=== PATIENT | female | born 1980 | race Hispanic/Latino ===

== ENCOUNTER 2017-08-04 20:04 | Emergency (ER) | payer OTHER ==
[2017-08-04 20:30] LABS: BASOPHILS % (AUTO) 0.8 % (0.0-5.0); EOSINOPHILS % (AUTO) 5.9 % (0.0-8.0); HEMATOCRIT 29.6 % (36-48); LYMPHOCYTES % (AUTO) 32.6 % (21.0-51.0); MEAN CORPUSCULAR HEMOGLOBIN 23.9 pg (27.0-33.0); MEAN CORPUSCULAR HGB CONC 31.7 g/dL (32.0-36.0); MEAN CORPUSCULAR VOLUME 75.6 fL (79-99); MONOCYTES % (AUTO) 7.2 % (3.0-13.0); NEUTROPHILS % (AUTO) 53.5 % (40.0-77.0); PLATELET COUNT (AUTO) 508 K/uL (130-400); RED BLOOD CELL COUNT(AUTO) 3.91 MIL/uL (4.00-5.50); RED CELL DISTRIBUTION WIDTH 17.2 % (11.0-15.5); WHITE BLOOD COUNT (AUTO) 11.4 K/uL (4.8-10.8)
[2017-08-04] MEDS ORDERED: KETOROLAC TROMETHAMINE 30MG/ML ONE (20:33)
[2017-08-04] MEDS ORDERED: ONDANSETRON HCL MDV 20ML 2 MG/ML VIAL ONE ×2 (20:33→20:34)
[2017-08-04] MEDS ORDERED: SODIUM CHLORIDE 0.9% 1000ML 1,000 ML IV ONE (20:33)
[2017-08-04 20:42] LABS: HCG,QUAL RESULT NEGATIVE (NEGATIVE)
[2017-08-04 20:43] LABS: APPEARANCE,URINE Clear (CLEAR); BILIRUBIN,URINE Negative (NEGATIVE); COLOR,URINE Yellow (YELLOW); GLUCOSE, URINE (UA) Negative (NEGATIVE); KETONES,URINE Negative (NEGATIVE); LEUKOCYTE ESTERASE ,URINE Trace (NEGATIVE); NITRATE,URINE Negative (NEGATIVE); OCCULT BLOOD,URINE Negative (NEGATIVE); PH,URINE 5.5 (5.0-8.0); PROTEIN,URINE Negative (NEGATIVE); UROBILINOGEN,URINE 0.2 mg/dL (0.2-1.0)
[2017-08-04 20:44] LABS: CREATININE 0.6 mg/dL (0.5-1.5)
[2017-08-04 20:49] LABS: ALBUMIN 3.2 g/dL (3.5-5.0); BILIRUBIN,TOTAL 0.2 mg/dL (0.2-1.0); TOTAL PROTEIN, SERUM 7.8 g/dL (6.0-8.3)
[2017-08-04 20:59] LABS: BACTERIA,URINE Few /HPF (None Seen); RBC,URINE None Seen /HPF (0-1); WBC,URINE 0-1 /HPF (0-1)
[2017-08-04] MEDS ORDERED: MORPHINE SULFATE 4 MG/1ML SYG ONE (22:09)
== END 2017-08-04 22:50 | disposition home or self-care (01) ==
LOC: EDH 20:04
DX: N20.0 Calculus of kidney (principal); E11.9 Type 2 diabetes mellitus without complications
CPT/HCPCS: 36415; 74176; 80053; 81001; 81025; 85025; 96374; 96375; 99285; J1885; J2270; J7030

== ENCOUNTER 2018-12-25 02:07 | Emergency (ER) | payer OTHER ==
[2018-12-25] MEDS ORDERED: HYDROXYZINE HCL 25 MG TABLET ONE (02:58)
== END 2018-12-25 03:18 | disposition home or self-care (01) ==
LOC: EDH 02:07
DX: F43.9 Reaction to severe stress, unspecified (principal); F41.9 Anxiety disorder, unspecified; F32.9 Major depressive disorder, single episode, unspecified; E11.9 Type 2 diabetes mellitus without complications; Z72.0 Tobacco use

== ENCOUNTER 2021-08-23 22:23 | Emergency (ER) | payer BC, OTHER ==
[~2021-08-23] VITALS: Ht 154.9 cm; Wt 101.6 kg
[2021-08-23] MEDS ORDERED: KETOROLAC 15MG/ML VIAL (15MG/ML) IV ONE (23:00)
[2021-08-23] MEDS ORDERED: MAG/ALUM/SIMETH 30 ML UDCUP PO ONE (23:00)
[2021-08-23] MEDS ORDERED: LIDOCAINE HCL 2% VISCOUS 15 ML UDCUP PO ONE (23:00)
[2021-08-23] MEDS ORDERED: FAMOTIDINE 20MG TAB PO ONE (23:00)
[2021-08-23] MEDS ORDERED: ONDANSETRON 4MG INJ IVP ONE (23:00)
[2021-08-23] MEDS ORDERED: 0.9%NACL 1000ML 1,000 ML IV ONE (23:00)
[2021-08-23 23:02] LABS: BASOPHILS % (AUTO) 0.5 % (0.0-5.0); EOSINOPHILS % (AUTO) 5.3 % (0.0-8.0); HEMATOCRIT 30.5 % (36-48); LYMPHOCYTES % (AUTO) 27.2 % (21.0-51.0); MEAN CORPUSCULAR HEMOGLOBIN 22.1 pg (27.0-33.0); MEAN CORPUSCULAR HGB CONC 29.8 g/dL (32.0-36.0); MEAN CORPUSCULAR VOLUME 74.2 fL (79-99); NEUTROPHILS % (AUTO) 61.5 % (40.0-77.0); PLATELET COUNT (AUTO) 489 K/uL (130-400); RED BLOOD CELL COUNT(AUTO) 4.11 MIL/uL (4.00-5.50); RED CELL DISTRIBUTION WIDTH 17.8 % (11.0-15.5); WHITE BLOOD COUNT (AUTO) 14.7 K/uL (4.8-10.8)
[2021-08-23 23:03] LABS: APPEARANCE,URINE Clear (CLEAR); BILIRUBIN,URINE Negative (NEGATIVE); COLOR,URINE Yellow (YELLOW); GLUCOSE, URINE (UA) >=1000 mg/dL (NEGATIVE); KETONES,URINE Negative (NEGATIVE); LEUKOCYTE ESTERASE ,URINE Negative (NEGATIVE); NITRATE,URINE Negative (NEGATIVE); OCCULT BLOOD,URINE Negative (NEGATIVE); PROTEIN,URINE POS 2+ mg/dL (NEGATIVE); UROBILINOGEN,URINE 0.2 mg/dL (0.2-1.0)
[2021-08-23 23:09] LABS: HCG,QUAL RESULT NEGATIVE (NEGATIVE)
[2021-08-23 23:11] LABS: BACTERIA,URINE Rare /HPF (None Seen); RBC,URINE 0-1 /HPF (0-1); SQUAMOUS EPITHELIAL CELL,UR 0-2 /HPF (0-2); WBC,URINE 0-1 /HPF (0-1)
[2021-08-23 23:27] LABS: ALBUMIN 2.9 g/dL (3.5-5.0); BILIRUBIN,TOTAL 0.3 mg/dL (0.2-1.0); CREATININE 0.7 mg/dL (0.5-1.5); POTASSIUM 3.7 mmol/L (3.5-5.1); TOTAL PROTEIN, SERUM 7.7 g/dL (6.0-8.3)
[2021-08-23 23:30] VITALS: BP 135/81
[2021-08-23] MEDS ORDERED: FAMO-136 PO (23:36)
[2021-08-24] MEDS ORDERED: MORPHINE 2 MG SYG IVP ONE ×2
[2021-08-24] MEDS ORDERED: PANTOPRAZOLE 40 MG/VIAL IVP ONE
== END 2021-08-24 00:04 | disposition home or self-care (01) ==
LOC: EDH 22:23
DX: R10.12 Left upper quadrant pain (principal); R11.2 Nausea with vomiting, unspecified; E11.9 Type 2 diabetes mellitus without complications; I10 Essential (primary) hypertension; E03.9 Hypothyroidism, unspecified; F41.9 Anxiety disorder, unspecified; F32.A Depression, unspecified
CPT/HCPCS: 36415; 74176; 80053; 81001; 81025; 83690; 85025; 96361; 96374; 96375; 99284; C9113; J1885; J2405; J7030

== ENCOUNTER 2021-08-29 21:45 | Emergency (ER) | payer BC ==
[~2021-08-29] VITALS: Ht 157.5 cm; Wt 113.4 kg
[~2021-08-29 21:45] MED LIST: FAMO-136 PO
[2021-08-29 23:44] LABS: BASOPHILS % (AUTO) 0.4 % (0.0-5.0); EOSINOPHILS % (AUTO) 5.1 % (0.0-8.0); HEMATOCRIT 32.7 % (36-48); LYMPHOCYTES % (AUTO) 21.6 % (21.0-51.0); MEAN CORPUSCULAR HEMOGLOBIN 22.1 pg (27.0-33.0); MEAN CORPUSCULAR VOLUME 73.6 fL (79-99); MONOCYTES % (AUTO) 4.8 % (3.0-13.0); NEUTROPHILS % (AUTO) 67.6 % (40.0-77.0); PLATELET COUNT (AUTO) 518 K/uL (130-400); RED BLOOD CELL COUNT(AUTO) 4.44 MIL/uL (4.00-5.50); RED CELL DISTRIBUTION WIDTH 17.6 % (11.0-15.5); WHITE BLOOD COUNT (AUTO) 15.4 K/uL (4.8-10.8)
[2021-08-29 23:53] LABS: APPEARANCE,URINE Clear (CLEAR); BILIRUBIN,URINE Negative (NEGATIVE); COLOR,URINE Yellow (YELLOW); GLUCOSE, URINE (UA) >=1000 mg/dL (NEGATIVE); KETONES,URINE Negative (NEGATIVE); LEUKOCYTE ESTERASE ,URINE Negative (NEGATIVE); NITRATE,URINE Negative (NEGATIVE); OCCULT BLOOD,URINE Negative (NEGATIVE); PH,URINE 6.5 (5.0-8.0); PROTEIN,URINE POS 2+ mg/dL (NEGATIVE)
[2021-08-30 00:02] LABS: CREATININE 0.7 mg/dL (0.5-1.5); POTASSIUM 3.6 mmol/L (3.5-5.1)
[2021-08-30 00:05] LABS: BACTERIA,URINE None Seen /HPF (None Seen); RBC,URINE None Seen /HPF (0-1); SQUAMOUS EPITHELIAL CELL,UR Few /HPF (0-2); WBC,URINE None Seen /HPF (0-1)
[2021-08-30 00:07] LABS: ALBUMIN 3.1 g/dL (3.5-5.0); BILIRUBIN,TOTAL 0.4 mg/dL (0.2-1.0); TOTAL PROTEIN, SERUM 8.3 g/dL (6.0-8.3)
[2021-08-30 00:19] VITALS: BP 121/72
[2021-08-30] MEDS ORDERED: HYDR25SU38 RC (00:53)
== END 2021-08-30 01:04 | disposition home or self-care (01) ==
LOC: EDH 21:45
DX: K29.70 Gastritis, unspecified, without bleeding (principal); F41.9 Anxiety disorder, unspecified; F32.A Depression, unspecified; E11.9 Type 2 diabetes mellitus without complications; I10 Essential (primary) hypertension; Z86.19 Personal history of other infectious and parasitic diseases; Z79.899 Other long term (current) drug therapy
CPT/HCPCS: 36415; 80053; 81001; 83690; 85025

== ENCOUNTER 2022-04-28 22:59 | Emergency (ER) | payer BC, OTHER ==
[~2022-04-28] VITALS: Ht 154.9 cm; Wt 99.8 kg
[~2022-04-28 22:59] MED LIST changes: +HYDR25SU38 RC
[2022-04-29 00:15] LABS: CREATININE 0.7 mg/dL (0.5-1.5); POTASSIUM 3.4 mmol/L (3.5-5.1)
[2022-04-29 00:21] LABS: HCG,QUALITATIVE URINE NEGATIVE (NEGATIVE)
[2022-04-29 00:22] LABS: ALBUMIN 2.8 g/dL (3.5-5.0); APPEARANCE,URINE CLEAR (CLEAR); BILIRUBIN,URINE NEGATIVE (NEGATIVE); COLOR,URINE LIGHT-YELLOW (YELLOW); GLUCOSE, URINE (UA) NEGATIVE (NEGATIVE); KETONES,URINE NEGATIVE (NEGATIVE); LEUKOCYTE ESTERASE ,URINE 250 Leu/uL (NEGATIVE); NITRATE,URINE NEGATIVE (NEGATIVE); OCCULT BLOOD,URINE NEGATIVE (NEGATIVE); PROTEIN,URINE 10 mg/dL (NEGATIVE); TOTAL PROTEIN, SERUM 7.7 g/dL (6.0-8.3); UROBILINOGEN,URINE 0.2 mg/dL (0.2-1.0)
[2022-04-29 00:31] LABS: BASOPHILS % (AUTO) 0.4 % (0.0-5.0); HEMATOCRIT 26.2 % (36-48); LYMPHOCYTES % (AUTO) 24.2 % (21.0-51.0); MEAN CORPUSCULAR HEMOGLOBIN 18.5 pg (27.0-33.0); MEAN CORPUSCULAR HGB CONC 28.6 g/dL (32.0-36.0); MEAN CORPUSCULAR VOLUME 64.5 fL (79-99); MONOCYTES % (AUTO) 4.5 % (3.0-13.0); NEUTROPHILS % (AUTO) 66.2 % (40.0-77.0); PLATELET COUNT (AUTO) 526 K/uL (130-400); RED BLOOD CELL COUNT(AUTO) 4.06 MIL/uL (4.00-5.50); RED CELL DISTRIBUTION WIDTH 21.7 % (11.0-15.5); WHITE BLOOD COUNT (AUTO) 15.9 K/uL (4.8-10.8)
[2022-04-29 00:34] LABS: MUCUS,URINE RARE LPF (None Seen); SQUAMOUS EPITHELIAL CELL,UR FEW /HPF (0-2)
[2022-04-29] MEDS ORDERED: KETOROLAC 30MG VIAL (30MG/ML) IVP ONE (01:00)
[2022-04-29 01:16] LABS: PLATELET MORPHOLOGY LARGE PLTS PRESENT
[2022-04-29] MEDS ORDERED: CYCL-309 PO (01:47)
[2022-04-29] MEDS ORDERED: GABA300C PO (01:47)
[2022-04-29] MEDS ORDERED: IBUP-1493 PO (01:47)
[2022-04-29 01:57] VITALS: BP 130/74
== END 2022-04-29 02:06 | disposition home or self-care (01) ==
LOC: EDH 22:59
DX: M54.16 Radiculopathy, lumbar region (principal)
CPT/HCPCS: 99285; 80053; 83690; 85025; 87088; 81001; 81025; 36415; 74176; 96374; J1885

== ENCOUNTER 2022-09-23 18:40 | Emergency (ER) | payer OTHER ==
[~2022-09-23] VITALS: Ht 154.9 cm; Wt 104.3 kg
[~2022-09-23 18:40] MED LIST changes: +CYCL-309 PO; +GABA300C PO; +IBUP-1493 PO
[2022-09-23] MEDS ORDERED: CYCLOBENZAPRINE HCL 10 MG TABLET PO ONE (19:00)
[2022-09-23] MEDS ORDERED: HYDROCODONE/ACETAMINOPHEN 5/325 MG TAB PO ONE (19:00)
[2022-09-23] MEDS ORDERED: LIDOCAINE 4% ADH..PATCH TP ONE (19:00)
[2022-09-23] MEDS ORDERED: PREDNISONE 20 MG TABLET PO ONE (19:00)
[2022-09-23] MEDS ORDERED: LIDOCAINE 5% TOPICAL PATCH TP ONE (20:07)
[2022-09-23] MEDS ORDERED: DIAZEPAM 5 MG TABLET PO ONE (20:30)
[2022-09-23] MEDS ORDERED: METH-811 PO (21:04)
[2022-09-23] MEDS ORDERED: PRED20TA3 PO (21:04)
[2022-09-23] MEDS ORDERED: IBUP-2070 PO (21:07)
[2022-09-23] MEDS ORDERED: DIAZ5TAB PO (21:07)
[2022-09-23 21:23] VITALS: BP 135/81
== END 2022-09-23 21:26 | disposition home or self-care (01) ==
LOC: EDH 18:40
DX: S39.012A Strain of muscle, fascia and tendon of lower back, initial encounter (principal); I10 Essential (primary) hypertension; E11.9 Type 2 diabetes mellitus without complications; F41.9 Anxiety disorder, unspecified; F32.A Depression, unspecified; Z79.899 Other long term (current) drug therapy; Z98.890 Other specified postprocedural states; X58.XXXA Exposure to other specified factors, initial encounter; Y93.E1 Activity, personal bathing and showering; Y92.89 Other specified places as the place of occurrence of the external cause; Y99.8 Other external cause status
CPT/HCPCS: 72100

== ENCOUNTER 2023-01-22 11:30 | Emergency (ER) | payer BC ==
[~2023-01-22] VITALS: Ht 154.9 cm; Wt 104.3 kg
[~2023-01-22 11:30] MED LIST changes: +DIAZ5TAB PO; +IBUP-2070 PO; +METH-811 PO; +PRED20TA3 PO
[2023-01-22] MEDS ORDERED: HYDROXYZINE 10 MG TABLET PO SCH (13:00)
[2023-01-22] MEDS ORDERED: HYDR-3421 PO (13:15)
[2023-01-22] MEDS ORDERED: HYDR28.32 TP (13:15)
[2023-01-22 13:23] VITALS: BP 128/71; PULSE 80; RESP 16; O2SAT 98
== END 2023-01-22 13:28 | disposition home or self-care (01) ==
LOC: EDH 11:30
DX: L25.9 Unspecified contact dermatitis, unspecified cause (principal); L29.9 Pruritus, unspecified; E11.9 Type 2 diabetes mellitus without complications; I10 Essential (primary) hypertension; F41.9 Anxiety disorder, unspecified; Z79.1 Long term (current) use of non-steroidal anti-inflammatories (NSAID); Z79.52 Long term (current) use of systemic steroids; Z79.899 Other long term (current) drug therapy

== ENCOUNTER 2023-03-17 15:21 | Emergency (ER) | payer BC ==
[~2023-03-17] VITALS: Ht 154.9 cm; Wt 92.5 kg
[~2023-03-17 15:21] MED LIST changes: +HYDR-3421 PO; +HYDR28.32 TP
[2023-03-17 15:44] LABS: APPEARANCE,URINE CLEAR (CLEAR); BILIRUBIN,URINE NEGATIVE (NEGATIVE); COLOR,URINE LIGHT-YELLOW (YELLOW); GLUCOSE, URINE (UA) >=1000 mg/dL (NEGATIVE); KETONES,URINE NEGATIVE (NEGATIVE); LEUKOCYTE ESTERASE ,URINE 25 Leu/uL (NEGATIVE); NITRATE,URINE NEGATIVE (NEGATIVE); OCCULT BLOOD,URINE LARGE (NEGATIVE); PROTEIN,URINE NEGATIVE (NEGATIVE); UROBILINOGEN,URINE 0.2 mg/dL (0.2-1.0)
[2023-03-17 15:45] LABS: HCG,QUALITATIVE URINE NEGATIVE (NEGATIVE)
[2023-03-17 15:46] LABS: ADD UA MICROSCOPIC YES
[2023-03-17 15:48] LABS: BACTERIA,URINE RARE /HPF (None Seen); MUCUS,URINE RARE LPF (None Seen); SQUAMOUS EPITHELIAL CELL,UR RARE /HPF (0-2)
[2023-03-17] MEDS ORDERED: METOCLOPRAMIDE 10 MG/2 ML VIAL IVP ONE (16:00)
[2023-03-17] MEDS ORDERED: KETOROLAC 30MG VIAL (30MG/ML) IVP ONE (16:00)
[2023-03-17] MEDS ORDERED: FAMOTIDINE 20MG VIAL IV ONE (16:00)
[2023-03-17] MEDS ORDERED: 0.9%NACL 1000ML 1,000 ML IV ONE (16:00)
[2023-03-17 16:01] LABS: BASOPHILS # (AUTO) 0.07 K/uL (0.00-0.20); BASOPHILS % (AUTO) 0.6 % (0.0-5.0); EOSINOPHILS % (AUTO) 2.6 % (0.0-8.0); HEMATOCRIT 28.1 % (36-48); IMMATURE GRANULOCYTE ABSOLUTE 0.06 K/uL (0-1); LYMPHOCYTES # (AUTO) 4.2 K/uL (1.0-4.8); MEAN CORPUSCULAR HEMOGLOBIN 21.9 pg (27.0-33.0); MEAN CORPUSCULAR HGB CONC 30.2 g/dL (32.0-36.0); MEAN CORPUSCULAR VOLUME 72.4 fL (79-99); MONOCYTES # (AUTO) 0.8 K/uL (0.1-1.0); MONOCYTES % (AUTO) 6.5 % (3.0-13.0); NEUTROPHILS # (AUTO) 6.3 K/uL (1.8-7.7); NEUTROPHILS % (AUTO) 53.8 % (40.0-77.0); PLATELET COUNT (AUTO) 428 K/uL (130-400); RED BLOOD CELL COUNT(AUTO) 3.88 MIL/uL (4.00-5.50); RED CELL DISTRIBUTION WIDTH 15.9 % (11.0-15.5); WHITE BLOOD COUNT (AUTO) 11.7 K/uL (4.8-10.8)
[2023-03-17 16:25] LABS: CREATININE 0.6 mg/dL (0.5-1.5); POTASSIUM 3.2 mmol/L (3.5-5.1)
[2023-03-17 16:30] LABS: ALBUMIN 2.9 g/dL (3.5-5.0); BILIRUBIN,TOTAL 0.4 mg/dL (0.2-1.0); TOTAL PROTEIN, SERUM 7.4 g/dL (6.0-8.3)
[2023-03-17 17:18] LABS: BAND NEUTROPHILS % (MANUAL) 2 % (0-2); BASOPHILS % (MANUAL) 1 % (0-2); EOSINOPHILS % (MANUAL) 1 % (1-6); LYMPHOCYTES % (MANUAL) 31 % (22-44); MAN.DIFF COMMENT-IMPRESSION MANUAL DIFFERENTIAL; MONOCYTES % (MANUAL) 3 % (2-9); PLATELET MORPHOLOGY COMMENT SLIGHT INCREASED; SEGMENTED NEUTROPHILS % 62 % (40-70); TOTAL CELLS COUNTED 100; WBC MORPHOLOGY CONSISTENT W/DIFF
[2023-03-17] MEDS ORDERED: POTASSIUM BICARB/CIT AC 25 MEQ TABLET.EFF PO ONE (17:30)
[2023-03-17] MEDS ORDERED: CEPHALEXIN 500 MG CAPSULE PO ONE (17:30)
[2023-03-17] MEDS ORDERED: CEPH500B PO (18:18)
[2023-03-17 18:43] VITALS: BP 112/57; PULSE 83; RESP 18; O2SAT 100
== END 2023-03-17 18:43 | disposition home or self-care (01) ==
LOC: EDH 15:21
DX: N39.0 Urinary tract infection, site not specified (principal); E87.6 Hypokalemia; I10 Essential (primary) hypertension; E11.9 Type 2 diabetes mellitus without complications; F41.9 Anxiety disorder, unspecified; F32.A Depression, unspecified; Z79.899 Other long term (current) drug therapy; Z98.890 Other specified postprocedural states
CPT/HCPCS: 99284; 74176; 96374; 96375; 96361; 80053; 83690; 85025; 87077; 87088; 87186; 81001; 81025; 36415; J3490; J7030; J1885; J2765

== ENCOUNTER 2023-05-13 08:58 | Emergency (ER) | payer BC ==
[~2023-05-13] VITALS: Ht 154.9 cm; Wt 89.4 kg
[~2023-05-13 08:58] MED LIST changes: +CEPH500B PO
[2023-05-13 09:24] LABS: SARS-CoV-2, RNA, NAAT NEGATIVE SARS CoV-2 (NEGATIVE)
[2023-05-13 09:30] LABS: INFLUENZA TYPE A Negative For Type A (NEGATIVE); INFLUENZA TYPE B Negative For Type B (NEGATIVE)
[2023-05-13 09:45] LABS: RAPID GROUP A STREP positive (NEGATIVE)
[2023-05-13] MEDS ORDERED: AMOX1TAB16 PO (10:15)
[2023-05-13] MEDS ORDERED: BENZ-39 PO (10:15)
[2023-05-13 11:01] VITALS: TEMP 98.4
[2023-05-13] MEDS: AMOX/CLAV 875/125MG TAB PO ONE (11:01)
[2023-05-13] MEDS: ACETAMINOPHEN 500 MG TABLET PO ONE (11:01)
[2023-05-13 11:40] VITALS: BP 124/72; PULSE 84; RESP 17; O2SAT 99
== END 2023-05-13 11:41 | disposition home or self-care (01) ==
LOC: EDH 08:58
DX: J02.0 Streptococcal pharyngitis (principal); R51.9 Headache, unspecified; R05.9 Cough, unspecified; Z20.822 Contact with and (suspected) exposure to COVID-19
CPT/HCPCS: 87635; 87804; 87880

== ENCOUNTER 2023-05-18 18:57 | Emergency (ER) | payer BC ==
[~2023-05-18] VITALS: Ht 154.9 cm; Wt 86.6 kg
[~2023-05-18 18:57] MED LIST changes: +AMOX1TAB16 PO; +BENZ-39 PO
[2023-05-18] MEDS: HYDROXYZINE 25 MG TABLET PO ONE (20:18)
[2023-05-18] MEDS: ALPRAZOLAM 0.25 MG TABLET PO ONE (21:28)
[2023-05-18 21:57] VITALS: BP 130/84; PULSE 88; RESP 18; O2SAT 100
== END 2023-05-18 21:58 | disposition home or self-care (01) ==
LOC: EDH 18:57
DX: F41.9 Anxiety disorder, unspecified (principal); F32.A Depression, unspecified; I10 Essential (primary) hypertension; E11.9 Type 2 diabetes mellitus without complications; Z79.899 Other long term (current) drug therapy; Z98.890 Other specified postprocedural states

== ENCOUNTER 2023-08-14 03:24 | Emergency (ER) | payer BC, OTHER ==
[~2023-08-14] VITALS: Ht 154.9 cm; Wt 88.5 kg
[2023-08-14] MEDS: ACETAMINOPHEN 500 MG TABLET PO ONE (03:48)
[2023-08-14 04:03] VITALS: BP 152/74; PULSE 84; RESP 18; O2SAT 98
[2023-08-14] MEDS: ORPHENADRINE CITRATE 30 MG/ML ML IM ONE (04:58)
[2023-08-14] MEDS: ORPHENADRINE CITRATE 30 MG/ML ML ONE (04:59)
[2023-08-14] MEDS ORDERED: GABA300S3 PO (05:18)
== END 2023-08-14 05:25 | disposition home or self-care (01) ==
LOC: EDH 03:24
DX: M94.0 Chondrocostal junction syndrome [Tietze] (principal); I10 Essential (primary) hypertension; E11.9 Type 2 diabetes mellitus without complications; F41.9 Anxiety disorder, unspecified; Z79.899 Other long term (current) drug therapy; Z90.49 Acquired absence of other specified parts of digestive tract; Z88.5 Allergy status to narcotic agent; Z88.8 Allergy status to other drugs, medicaments and biological substances; Z98.890 Other specified postprocedural states
CPT/HCPCS: 71101; 81025; 93005; 96372; J2360

== ENCOUNTER 2023-08-16 16:30 | Emergency (ER) | payer OTHER ==
[~2023-08-16] VITALS: Ht 154.9 cm; Wt 89.8 kg
[~2023-08-16 16:30] MED LIST changes: +GABA300S3 PO
[2023-08-16 16:50] VITALS: BP 107/59; PULSE 80; RESP 15; O2SAT 97
[2023-08-16 16:51] LABS: APPEARANCE,URINE CLEAR (CLEAR); BILIRUBIN,URINE NEGATIVE (NEGATIVE); COLOR,URINE LIGHT-YELLOW (YELLOW); GLUCOSE, URINE (UA) NEGATIVE (NEGATIVE); KETONES,URINE NEGATIVE (NEGATIVE); LEUKOCYTE ESTERASE ,URINE 500 Leu/uL (NEGATIVE); NITRATE,URINE NEGATIVE (NEGATIVE); OCCULT BLOOD,URINE NEGATIVE (NEGATIVE); PH,URINE 5.5 (5.0-8.0); PROTEIN,URINE NEGATIVE (NEGATIVE); UROBILINOGEN,URINE 0.2 mg/dL (0.2-1.0)
[2023-08-16 16:53] LABS: MEAN CORPUSCULAR HEMOGLOBIN 20.6 pg (27.0-33.0); MEAN CORPUSCULAR VOLUME 68.6 fL (79-99); PLATELET COUNT (AUTO) 487 K/uL (130-400); RED BLOOD CELL COUNT(AUTO) 4.08 MIL/uL (4.00-5.50); RED CELL DISTRIBUTION WIDTH 20.3 % (11.0-15.5); WHITE BLOOD COUNT (AUTO) 14.1 K/uL (4.8-10.8)
[2023-08-16 16:58] LABS: ADD UA MICROSCOPIC YES
[2023-08-16 17:02] LABS: CREATININE 0.6 mg/dL (0.5-1.0); POTASSIUM 3.9 mmol/L (3.5-5.1)
[2023-08-16 17:04] LABS: BACTERIA,URINE FEW /HPF (None Seen); MUCUS,URINE RARE LPF (None Seen); SQUAMOUS EPITHELIAL CELL,UR FEW /HPF (0-2); TRICHOMONAS,URINE RARE /LPF (None Seen)
[2023-08-16] MEDS ORDERED: AMOX200S10 PO (17:23)
[2023-08-16] MEDS ORDERED: METF-444 PO (17:23)
[2023-08-16] MEDS: IBUPROFEN 800 MG TAB PO ONE (17:23)
== END 2023-08-16 17:31 | disposition home or self-care (01) ==
LOC: EDH 16:30
DX: M94.0 Chondrocostal junction syndrome [Tietze] (principal); N39.0 Urinary tract infection, site not specified; E11.65 Type 2 diabetes mellitus with hyperglycemia; E66.9 Obesity, unspecified; F41.9 Anxiety disorder, unspecified; F32.A Depression, unspecified; Z79.899 Other long term (current) drug therapy; Z98.890 Other specified postprocedural states; Z90.49 Acquired absence of other specified parts of digestive tract; Z88.5 Allergy status to narcotic agent; Z88.8 Allergy status to other drugs, medicaments and biological substances
CPT/HCPCS: 36415; 71045; 80048; 81001; 84484; 85027; 87088; 93005